=== PATIENT | female | born 1930 | race African-American/Black ===

== ENCOUNTER 2018-05-22 10:37 | Emergency (ER) | payer MEDICARE ==
[~2018-05-22] VITALS: Ht 165.1 cm; Wt 77.1 kg
[2018-05-22 10:41] VITALS: BP_SYST 114
[2018-05-22] MEDS ORDERED: ASPIRIN 81 MG TAB.CHEW PO ONE (11:00)
[2018-05-22 11:19] LABS: HEMATOCRIT 38.6 % (36-48); HEMOGLOBIN 12.7 g/dL (12.0-16.0); RED BLOOD CELL COUNT(AUTO) 3.88 MIL/uL (4.2-6.2); WHITE BLOOD COUNT (AUTO) 5.7 K/uL (4.8-10.8)
[2018-05-22 11:20] LABS: BASOPHILS # (AUTO) 0.1 K/uL (0.0-0.2); BASOPHILS % (AUTO) 0.9 % (0.0-2.0); EOSINOPHILS # (AUTO) 0.1 K/uL (0.0-0.4); LYMPHOCYTES # (AUTO) 1.5 K/uL (1.0-5.5); LYMPHOCYTES % (AUTO) 27.1 % (20.5-51.5); MEAN CORPUSCULAR HEMOGLOBIN 33 pg (27-31); MEAN CORPUSCULAR HGB CONC 33 % (32-36); MEAN CORPUSCULAR VOLUME 99 fL (79.0-98.0); MONOCYTES # (AUTO) 0.4 K/uL (0.0-1.0); MONOCYTES % (AUTO) 6.7 % (1.7-9.3); NEUTROPHILS # (AUTO) 3.6 K/uL (1.8-7.7); NEUTROPHILS % (AUTO) 64.3 % (40.0-70.0); PLATELET COUNT (AUTO) 207 K/uL (130-430); RED CELL DISTRIBUTION WIDTH 14.6 % (9.0-15.0)
[2018-05-22 11:30] LABS: ANION GAP 5 (5-15); CALCIUM 8.6 mg/dL (8.4-11.0); CHLORIDE 102 mmol/L (98-107); CREATININE 1.08 mg/dL (0.55-1.30); GLUCOSE 83 mg/dL (70-99); POTASSIUM 3.6 mmol/L (3.5-5.1); SODIUM SERUM 137 mmol/L (136-145); UREA NITROGEN, BLOOD 12 mg/dL (8-21)
[2018-05-22 11:33] LABS: PROTHROMBIN TIME 10.5 SECS (9.5-12.5)
[2018-05-22 11:35] LABS: ALANINE AMINOTRANSFERASE 31 U/L (12-78); ASPARTATE AMINOTRANSFERASE 35 U/L (10-37); TOTAL BILIRUBIN 0.5 mg/dL (0.0-1.0)
[2018-05-22] MEDS ORDERED: ACETAMINOPHEN 500 MG TABLET PO ONE (13:00)
[2018-05-22] MEDS ORDERED: DULO20CA PO (14:10)
[2018-05-22] MEDS ORDERED: LEVO25TA7 PO (14:10)
[2018-05-22] MEDS ORDERED: HYD10 PO (14:10)
[2018-05-22] MEDS ORDERED: TIZA4TAB11 PO (14:10)
[2018-05-22] MEDS ORDERED: METO25TA3 PO (14:10)
[2018-05-22] MEDS ORDERED: FAMO-132 PO (14:10)
[2018-05-22] MEDS ORDERED: ATOR10TA68 PO (14:10)
[2018-05-22] MEDS ORDERED: cefTRIAXone 1 GM IVPB PREMIX 50 ML IV ONE (17:15)
[2018-05-22 17:17] VITALS: BP_SYST 140
== END 2018-05-22 17:25 | disposition short-term general hospital (02) ==
LOC: SED 10:37
DX: R07.89 Other chest pain (principal); R74.0 Nonspecific elevation of levels of transaminase and lactic acid dehydrogenase [LDH]; I10 Essential (primary) hypertension; Z90.710 Acquired absence of both cervix and uterus; Z85.3 Personal history of malignant neoplasm of breast; Z79.899 Other long term (current) drug therapy
CPT/HCPCS: 36415; 71045; 80053; 82550; 83605; 83880; 84484; 85025; 85610; 85730; 87040; 93005; 96365; 99285; J0696

== ENCOUNTER 2018-08-05 18:15 | Emergency (ER) | payer MEDICARE ==
[~2018-08-05] VITALS: Ht 165.1 cm; Wt 72.6 kg
[~2018-08-05 18:15] MED LIST: ATOR10TA68 PO; DULO20CA PO; FAMO-132 PO; HYD10 PO; LEVO25TA7 PO; METO25TA3 PO; TIZA4TAB11 PO
[2018-08-05 18:21] VITALS: BP_SYST 107
[2018-08-05 19:49] LABS: BASOPHILS % (AUTO) 0.1 % (0.0-2.0); EOSINOPHILS % (AUTO) 0.2 % (0.0-4.0); HEMOGLOBIN 11.9 g/dL (12.0-16.0); LYMPHOCYTES # (AUTO) 1.3 K/uL (1.0-5.5); LYMPHOCYTES % (AUTO) 12.6 % (20.5-51.5); MEAN CORPUSCULAR HEMOGLOBIN 33 pg (27-31); MEAN CORPUSCULAR HGB CONC 33 % (32-36); MEAN CORPUSCULAR VOLUME 99 fL (79.0-98.0); MONOCYTES # (AUTO) 0.7 K/uL (0.0-1.0); MONOCYTES % (AUTO) 6.8 % (1.7-9.3); NEUTROPHILS # (AUTO) 8.2 K/uL (1.8-7.7); NEUTROPHILS % (AUTO) 80.3 % (40.0-70.0); PLATELET COUNT (AUTO) 165 K/uL (130-430); RED BLOOD CELL COUNT(AUTO) 3.64 MIL/uL (4.2-6.2); WHITE BLOOD COUNT (AUTO) 10.2 K/uL (4.8-10.8)
[2018-08-05 19:53] LABS: ANION GAP 9 (5-15); CALCIUM 8.6 mg/dL (8.4-11.0); CHLORIDE 102 mmol/L (98-107); CREATININE 1.11 mg/dL (0.55-1.30); GLUCOSE 124 mg/dL (70-99); POTASSIUM 3.8 mmol/L (3.5-5.1); SODIUM SERUM 137 mmol/L (136-145); UREA NITROGEN, BLOOD 16 mg/dL (8-21)
[2018-08-05 19:55] LABS: INR 1.1 (0.8-1.2); PROTHROMBIN TIME 11.1 SECS (9.5-12.5)
[2018-08-05 19:58] LABS: ALANINE AMINOTRANSFERASE 81 U/L (12-78); ALBUMIN 2.8 g/dL (3.4-4.8); ASPARTATE AMINOTRANSFERASE 82 U/L (10-37); TOTAL BILIRUBIN 0.7 mg/dL (0.0-1.0)
[2018-08-05] MEDS ORDERED: LEVO75TA7 PO (20:17)
[2018-08-05] MEDS ORDERED: ATOR20TA64 PO (20:19)
[2018-08-05] MEDS ORDERED: TIZA4TAB11 PO (20:20)
[2018-08-05] MEDS ORDERED: METO25TA6 PO (20:21)
[2018-08-05] MEDS ORDERED: hydrocodone PO (20:26)
[2018-08-05] MEDS ORDERED: LACT10SO6 PO (20:26)
[2018-08-05 21:00] LABS: BILIRUBIN,URINE NEGATIVE (NEGATIVE); BLOOD, URINE 2+ (NEGATIVE); CLARITY/URINE HAZY (CLEAR); COLOR,URINE YELLOW (YELLOW); GLUCOSE,URINE NEGATIVE (NEGATIVE); KETONES,URINE NEGATIVE (NEGATIVE); LEUKOCYTE ESTERASE ,URINE 3+ (NEGATIVE); NITRITE, URINE NEGATIVE (NEGATIVE); PROTEIN URINE TRACE (NEGATIVE)
[2018-08-05 21:09] LABS: BACTERIA,URINE MANY /HPF (None Seen); MUCUS,URINE None Seen /LPF (None Seen); WBC,URINE 80-100 /HPF (0-3)
[2018-08-05] MEDS ORDERED: cefTRIAXone 1 GM IVPB PREMIX 50 ML IV ONE (21:45)
[2018-08-05] MEDS ORDERED: CEPHALEXIN 500 MG CAPSULE PO ONE (22:00)
[2018-08-05 23:20] VITALS: BP_SYST 107
== END 2018-08-05 23:20 | disposition home or self-care (01) ==
LOC: SED 18:15
DX: N39.0 Urinary tract infection, site not specified (principal); R55 Syncope and collapse; I10 Essential (primary) hypertension; Z85.3 Personal history of malignant neoplasm of breast; Z79.899 Other long term (current) drug therapy
CPT/HCPCS: 36415; 70450-TC; 71045; 80053; 81000-TC; 84484; 85025; 85610-TC; 87086; 87186-TC; 93005; 99284

== ENCOUNTER 2018-10-20 13:34 | Emergency (ER) | payer MEDICARE ==
[~2018-10-20] VITALS: Ht 165.1 cm; Wt 87.1 kg
[~2018-10-20 13:34] MED LIST changes: -ATOR10TA68 PO; +ATOR20TA64 PO; +LACT10SO6 PO; -LEVO25TA7 PO; +LEVO75TA7 PO; -METO25TA3 PO; +METO25TA6 PO; +hydrocodone PO
[2018-10-20 13:50] VITALS: BP_SYST 119
[2018-10-20] MEDS ORDERED: ONDANSETRON HCL 4 MG/2 ML VIAL IVP ONE (14:45)
[2018-10-20] MEDS ORDERED: fentaNYL CITRATE/PF 100 MCG/2 ML AMP IVP ONE ×2 (14:45→20:00)
[2018-10-20 14:51] LABS: BASOPHILS % (AUTO) 0.1 % (0.0-2.0); HEMATOCRIT 31.6 % (36-48); MEAN CORPUSCULAR HEMOGLOBIN 30 pg (27-31); MEAN CORPUSCULAR HGB CONC 32 % (32-36); MEAN CORPUSCULAR VOLUME 94 fL (79.0-98.0); MONOCYTES # (AUTO) 0.6 K/uL (0.0-1.0); RED BLOOD CELL COUNT(AUTO) 3.35 MIL/uL (4.2-6.2)
[2018-10-20 15:06] LABS: INR 1.6 (0.8-1.2); PROTHROMBIN TIME 16.1 SECS (9.5-12.5)
[2018-10-20 15:08] LABS: WHITE BLOOD COUNT (AUTO) 12.8 K/uL (4.8-10.8)
[2018-10-20 15:09] LABS: LYMPHOCYTES # (AUTO) 0.6 K/uL (1.0-5.5); LYMPHOCYTES % (AUTO) 4.6 % (20.5-51.5); MONOCYTES % (AUTO) 4.4 % (1.7-9.3); NEUTROPHILS # (AUTO) 11.6 K/uL (1.8-7.7); NEUTROPHILS % (AUTO) 90.9 % (40.0-70.0); PLATELET COUNT (AUTO) 509 K/uL (130-430); RED CELL DISTRIBUTION WIDTH 16.9 % (9.0-15.0)
[2018-10-20 15:15] LABS: ANION GAP 11 (5-15); CHLORIDE 102 mmol/L (98-107); CREATININE 1.53 mg/dL (0.55-1.30); GLUCOSE 142 mg/dL (70-99); POTASSIUM 3.4 mmol/L (3.5-5.1); SODIUM SERUM 138 mmol/L (136-145); UREA NITROGEN, BLOOD 42 mg/dL (8-21)
[2018-10-20 15:25] LABS: ALANINE AMINOTRANSFERASE 17 U/L (12-78); ASPARTATE AMINOTRANSFERASE 114 U/L (10-37); TOTAL BILIRUBIN 0.8 mg/dL (0.0-1.0)
[2018-10-20] MEDS ORDERED: cefTRIAXone 1 GM IVPB PREMIX 50 ML IV ONE (16:30)
[2018-10-20 16:33] LABS: BILIRUBIN,URINE 1+ (NEGATIVE); BLOOD, URINE 3+ (NEGATIVE); CLARITY/URINE CLOUDY (CLEAR); COLOR,URINE YELLOW (YELLOW); GLUCOSE,URINE NEGATIVE (NEGATIVE); KETONES,URINE TRACE (NEGATIVE); LEUKOCYTE ESTERASE ,URINE 3+ (NEGATIVE); NITRITE, URINE NEGATIVE (NEGATIVE); PH,URINE 5.5 (5.0-8.0); PROTEIN URINE 1+ (NEGATIVE)
[2018-10-20 16:58] LABS: BACTERIA,URINE MODERATE /HPF (None Seen); RBC,URINE 20-50 /HPF (0-3); WBC,URINE >100 /HPF (0-3)
[2018-10-20] MEDS ORDERED: NACL 0.9% 2,000 ML IV ONE (17:15)
[2018-10-20] MEDS ORDERED: KETOROLAC TROMETHAMINE 30 MG VIAL IVP ONE (18:15)
[2018-10-20 19:54] VITALS: BP_SYST 127
== END 2018-10-20 19:54 | disposition short-term general hospital (02) ==
LOC: SED 13:34
DX: N39.0 Urinary tract infection, site not specified (principal); E86.0 Dehydration; I10 Essential (primary) hypertension; E11.9 Type 2 diabetes mellitus without complications; Z79.899 Other long term (current) drug therapy
CPT/HCPCS: 36415; 71045; 74021; 80053; 81000; 83605; 84484; 85025; 85610; 85730; 87040; 87086; 87186; 93005; 96361; 96365; 96375; 96376; 99291; J0696; J1885; J2405; J3010; J7030